=== PATIENT | male | born 1945 | race Hispanic/Latino ===

== ENCOUNTER 2018-08-14 05:52 | Observation (INO) | payer MEDICARE, OTHER ==
[~2018-08-14] VITALS: Ht 180.3 cm; Wt 85.0 kg
[~2018-08-14 05:52] MED LIST: ALBU6.7H IH; BUDE10.2 IH; CHOL100018 PO; GLYB5TAB8 PO; LOSA50TA2 PO; METF-444 PO; MONT10TA24 PO; TAMS-1 PO; TIOT4MIS5 IH
[2018-08-14] MEDS ORDERED: ASPIRIN 325 MG TABLET ONE (06:08)
[2018-08-14 06:16] LABS: BASOPHILS % (AUTO) 0.8 % (0.0-5.0); EOSINOPHILS % (AUTO) 3.8 % (0.0-8.0); HEMATOCRIT 36.4 % (42-54); LYMPHOCYTES % (AUTO) 33.2 % (21.0-51.0); MEAN CORPUSCULAR HEMOGLOBIN 32.1 pg (27.0-33.0); MEAN CORPUSCULAR HGB CONC 34.5 g/dL (32.0-36.0); MONOCYTES % (AUTO) 7.7 % (3.0-13.0); NEUTROPHILS % (AUTO) 54.5 % (40.0-77.0); PLATELET COUNT (AUTO) 173 K/uL (130-400); RED BLOOD CELL COUNT(AUTO) 3.91 MIL/uL (4.50-6.20); RED CELL DISTRIBUTION WIDTH 13.3 % (11.0-15.5); WHITE BLOOD COUNT (AUTO) 6.2 K/uL (4.8-10.8)
[2018-08-14 06:24] LABS: POTASSIUM 4.8 mmol/L (3.5-5.1)
[2018-08-14 06:35] LABS: ALBUMIN 3.8 g/dL (3.5-5.0); BILIRUBIN,TOTAL 0.8 mg/dL (0.2-1.0); TOTAL PROTEIN, SERUM 7.4 g/dL (6.0-8.3)
[2018-08-14 06:58] LABS: INR 1.02 (0.85-1.15); PARTIAL THROMBOPLASTIN TIME 27.3 SEC (26.3-35.5); PROTHROMBIN TIME 10.7 SEC (9.6-11.6)
[2018-08-14 10:34] LABS: CHOLESTEROL 158 mg/dL (<200); HDL CHOLESTEROL 121 mg/dL (29-71); LDL DIRECT 82 mg/dL (0-99); TRIGLYCERIDES 170 mg/dL (30-200)
[2018-08-14] MEDS ORDERED: METOPROLOL TARTRATE 25 MG TAB ONE (10:35)
[2018-08-14 10:38] LABS: HEMOGLOBIN A1C 7.8 % (4.0-6.0)
[2018-08-14] MEDS ORDERED: NITROGLYCERIN 0.4 MG SL TAB SL PRN (10:45)
[2018-08-14] MEDS ORDERED: IPRATROPIUM/ALBUTEROL SULFATE 3 ML SOLUTION IH ONE (10:57)
[2018-08-14] MEDS: IPRATROPIUM/ALBUTEROL SULFATE 3 ML SOLUTION IH SCH ×3 (11:02→23:13)
[2018-08-14] MEDS ORDERED: INSULIN HUMULIN R 100 UNIT/ML 3ML SQ SCH (11:30)
[2018-08-14 12:00] VITALS: BP 134/65
[2018-08-14 13:08] LABS: CREATINE KINASE, TOTAL 154 U/L (21-232); MYOGLOBIN 75 ng/mL (10-92); TROPONIN I < 0.04 ng/mL (0.00-0.06)
[2018-08-14] MEDS ORDERED: ASPI-555 PO (13:14)
[2018-08-14] MEDS ORDERED: OMEG-148 PO (13:14)
[2018-08-14] MEDS ORDERED: SUB PER P&T FOR ASTHMA OR COPD RECOMMENDATION IH PRN (13:15)
[2018-08-14] MEDS ORDERED: ALBUTEROL SULFATE 0.083% 2.5 MG/3 ML INH IH PRN (13:45)
[2018-08-14 15:34] VITALS: BP 128/70
[2018-08-14] MEDS: METFORMIN HCL 500 MG TABLET PO SCH (18:15)
[2018-08-14 18:27] LABS: CREATINE KINASE, TOTAL 125 U/L (21-232); MYOGLOBIN 62 ng/mL (10-92); TROPONIN I < 0.04 ng/mL (0.00-0.06)
[2018-08-14 20:01] VITALS: BP 129/62
[2018-08-14] MEDS: INSULIN HUMULIN R 100 UNIT/ML 3ML SQ SCH (20:55)
[2018-08-14] MEDS: METOPROLOL TARTRATE 25 MG TAB PO SCH (21:07)
[2018-08-14 23:45] VITALS: BP 119/65
[2018-08-15 00:38] LABS: CREATINE KINASE, TOTAL 110 U/L (21-232); MYOGLOBIN 72 ng/mL (10-92); TROPONIN I < 0.04 ng/mL (0.00-0.06)
[2018-08-15 03:55] VITALS: BP 115/64
--- NOTE | 2018-08-15 06:04 | NUR ---
PATIENT UPDATE ADMITTED FROM THE PREV SHIFT FOR CHEST PAIN. NO COMPLAINTS OF PAIN OVERNIGHT, NO SHORTNESS OF BREATH. PT RECEIVED WITH O2 ON AT 2L PER NASAL CANNULA, WEANED OFF BY RT. O2 SAT 94-96% ON ROOM AIR. PENDING CONSULT WITH AUTOMOTIVE DIAGNOSTIC TECHNICIAN, NO VISIT FROM DR. POWERS LAST NIGHT. VITAL SIGNS STABLE, REFUSED THE INSULIN S/S COVERAGE AT HS, BLOOD SUGAR THIS AM AT 82. RUNNING NSR IN THE TELE MONITOR, NO ECTOPIES NOTED.
[2018-08-15] MEDS: IPRATROPIUM/ALBUTEROL SULFATE 3 ML SOLUTION IH SCH ×2 (06:34→11:57)
[2018-08-15] MEDS: INSULIN HUMULIN R 100 UNIT/ML 3ML SQ SCH ×2 (07:30→11:30)
[2018-08-15] MEDS ORDERED: ASPIRIN 325 MG TABLET PO SCH (09:00)
[2018-08-15] MEDS ORDERED: **HM** VIT D3 1000 UNITS PO SCH (09:00)
[2018-08-15] MEDS ORDERED: LOSARTAN 50 MG TABLET PO SCH (09:00)
[2018-08-15] MEDS ORDERED: FISH OIL 1000 MG/CAP PO SCH (09:00)
[2018-08-15] MEDS ORDERED: GLYBURIDE 5 MG TABLET PO SCH (09:00)
[2018-08-15] MEDS ORDERED: ASPIRIN 81MG TAB.CHEW PO SCH (09:00)
[2018-08-15] MEDS ORDERED: ENOXAPARIN SODIUM 30 MG/0.3 ML SQ SCH (09:00)
[2018-08-15] MEDS ORDERED: PANTOPRAZOLE SODIUM 40 MG TABLET.DR PO SCH (09:00)
[2018-08-15] MEDS ORDERED: MONTELUKAST SODIUM 10 MG TAB PO SCH (09:00)
[2018-08-15 09:20] VITALS: BP 122/61
[2018-08-15] MEDS: METOPROLOL TARTRATE 25 MG TAB PO SCH (11:26)
[2018-08-15] MEDS: METFORMIN HCL 500 MG TABLET PO SCH (11:28)
[2018-08-15 13:23] VITALS: BP 134/72
[2018-08-15] MEDS ORDERED: PANT40TA PO (13:39)
== END 2018-08-15 14:30 | disposition home or self-care (01) ==
LOC: EDH 05:52 → EDHIP 10:13 → 3DH 11:50
PROVIDERS: ADMIT Internal Medicine; ATTEND Internal Medicine
DX: R07.89 Other chest pain (principal); I50.33 Acute on chronic diastolic (congestive) heart failure; E11.9 Type 2 diabetes mellitus without complications; E78.5 Hyperlipidemia, unspecified; E89.0 Postprocedural hypothyroidism; I45.10 Unspecified right bundle-branch block; J44.9 Chronic obstructive pulmonary disease, unspecified; K21.9 Gastro-esophageal reflux disease without esophagitis; Z82.49 Family history of ischemic heart disease and other diseases of the circulatory system; Z82.5 Family history of asthma and other chronic lower respiratory diseases; Z83.3 Family history of diabetes mellitus; Z87.730 Personal history of (corrected) cleft lip and palate; Z90.49 Acquired absence of other specified parts of digestive tract; Z88.8 Allergy status to other drugs, medicaments and biological substances
CPT/HCPCS: 36415 ×2; 71045; 80053; 80061; 82550 ×4; 82948 ×6; 83036; 83874 ×4; 83880; 84484 ×4; 85025; 85610; 85730; 93005 ×3; 93306; 94640 ×5; 94664; 96372; 99284; G0378 ×28; J1650

== ENCOUNTER 2018-12-16 21:03 | Inpatient (IN) | payer MEDICARE, OTHER ==
[~2018-12-16] VITALS: Ht 177.8 cm; Wt 81.2 kg
[~2018-12-16 21:03] MED LIST changes: +ASPI-555 PO; +OMEG-148 PO; +PANT40TA PO; -TAMS-1 PO; -TIOT4MIS5 IH
[2018-12-16] MEDS ORDERED: ONDANSETRON HCL 4 MG/2 ML VIAL ONE (21:28)
[2018-12-16] MEDS ORDERED: ACETAMINOPHEN 325 MG TAB ONE (21:29)
[2018-12-16] MEDS ORDERED: MORPHINE SULFATE 4 MG/1ML SYG ONE (21:29)
[2018-12-16] MEDS ORDERED: SODIUM CHLORIDE 0.9% 1000ML 1,000 ML IV ONE (21:29)
[2018-12-16 21:46] LABS: APPEARANCE,URINE Clear (CLEAR); BILIRUBIN,URINE Negative (NEGATIVE); COLOR,URINE Yellow (YELLOW); GLUCOSE, URINE (UA) Negative (NEGATIVE); KETONES,URINE Negative (NEGATIVE); LEUKOCYTE ESTERASE ,URINE Trace (NEGATIVE); NITRATE,URINE Negative (NEGATIVE); OCCULT BLOOD,URINE Negative (NEGATIVE); PROTEIN,URINE Negative (NEGATIVE); UROBILINOGEN,URINE 0.2 mg/dL (0.2-1.0)
[2018-12-16 21:47] LABS: BASOPHILS % (AUTO) 0.5 % (0.0-5.0); EOSINOPHILS % (AUTO) 1.7 % (0.0-8.0); HEMATOCRIT 39.4 % (42-54); LYMPHOCYTES % (AUTO) 9.5 % (21.0-51.0); MEAN CORPUSCULAR HEMOGLOBIN 32.1 pg (27.0-33.0); MEAN CORPUSCULAR HGB CONC 34.9 g/dL (32.0-36.0); MEAN CORPUSCULAR VOLUME 91.9 fL (79-99); MONOCYTES % (AUTO) 7.9 % (3.0-13.0); NEUTROPHILS % (AUTO) 80.4 % (40.0-77.0); PLATELET COUNT (AUTO) 159 K/uL (130-400); RED BLOOD CELL COUNT(AUTO) 4.28 MIL/uL (4.50-6.20); RED CELL DISTRIBUTION WIDTH 12.8 % (11.0-15.5); WHITE BLOOD COUNT (AUTO) 10.4 K/uL (4.8-10.8)
[2018-12-16 21:50] LABS: CREATININE 1.7 mg/dL (0.5-1.5); POTASSIUM 4.1 mmol/L (3.5-5.1)
[2018-12-16 21:53] LABS: BACTERIA,URINE Few /HPF (None Seen); RBC,URINE 0-1 /HPF (0-1)
[2018-12-16 21:54] LABS: ALBUMIN 3.5 g/dL (3.5-5.0); BILIRUBIN,TOTAL 0.9 mg/dL (0.2-1.0); MUCUS,URINE None Seen LPF (None Seen); SQUAMOUS EPITHELIAL CELL,UR 0-2 /HPF (0-2); TOTAL PROTEIN, SERUM 7.7 g/dL (6.0-8.3)
[2018-12-16] MEDS ORDERED: CEFTRIAXONE SODIUM 1 GM ONE (22:34)
[2018-12-16] MEDS ORDERED: TAMSULOSIN HCL 0.4 MG CAP.ER.24H ONE (23:48)
[2018-12-17] MEDS ORDERED: ACETAMINOPHEN 325 MG TAB ONE (03:42)
[2018-12-17] MEDS ORDERED: MORPHINE SULFATE 4 MG/1ML SYG ONE (03:42)
[2018-12-17] MEDS ORDERED: MORPHINE SULFATE 4 MG/1ML SYG IV PRN (04:30)
[2018-12-17] MEDS ORDERED: ACETAMINOPHEN EXTRA STRENGTH 500 MG TABLET PO PRN (04:30)
[2018-12-17] MEDS ORDERED: MORPHINE SULFATE 2 MG/ML 1ML SYG IV PRN (04:30)
[2018-12-17] MEDS: CEFTRIAXONE SODIUM 2 GM VIAL IVP SCH (04:30)
[2018-12-17 08:40] VITALS: BP 104/40
[2018-12-17] MEDS ORDERED: FAMOTIDINE/PF 20 MG/2 ML VIAL IV SCH (09:00)
[2018-12-17] MEDS: ENOXAPARIN SODIUM 30 MG/0.3 ML SQ SCH ×2 (09:00→12:52)
[2018-12-17] MEDS ORDERED: PRED20TA3 PO (10:02)
[2018-12-17] MEDS ORDERED: KRIL1CAP18 PO (10:02)
--- NOTE | 2018-12-17 10:20 | NUR ---
PER DR. HYMAN OFFICE ([facility]) BOTH HER AND DR. MACHADO ARE OUT OF THE OFFICE UNTIL FRIDAY DR. MONTES DE OCA IS COVERING FOR THEM
--- NOTE | 2018-12-17 10:35 | NUR ---
DR. MONTES DE OCA'S OFFICE PAGED YASMIN AWARE OF CT ABD / PELVIS
[2018-12-17 11:00] VITALS: BP 110/58
[2018-12-17 16:00] VITALS: BP 107/44
[2018-12-17 20:19] VITALS: BP 126/64
[2018-12-17] MEDS: DOCUSATE SODIUM 100 MG CAP PO SCH (20:34)
[2018-12-17] MEDS: BISACODYL 5 MG TABLET.DR PO SCH (20:34)
[2018-12-17] MEDS: SODIUM CHLORIDE 0.9% 1000ML 1,000 ML IV SCH (20:35)
--- NOTE | 2018-12-17 21:30 | NUR ---
MD ROUNDING. ROUNDED IN PT ROOM. ASSESSED PT CHART AND PT. UPDATED PT AND FAMILY MEMBER AT BEDSIDE OF PLAN OF CARE, PT AND FAMILY WERE ABLE TO ASK QUESTIONS/VOICE CONCERNS AND RECEIVE ANSWERS FROM MD. NEW ORDERS PLACED (REFER TO EMR), SPOKE TO REFUSE COLLECTOR TO SCHEDULE PROCEDURE FOR TOMORROW 12/18/18 AT 12:00.
[2018-12-17 23:48] VITALS: BP 111/59
[2018-12-18] VITALS (15 sets, daily range): BP systolic 97–136; BP diastolic 55–72
[2018-12-18] MEDS: SODIUM CHLORIDE 0.9% 1000ML 1,000 ML IV SCH ×3 (05:10→18:35)
[2018-12-18] MEDS: CEFTRIAXONE SODIUM 2 GM VIAL IVP SCH (05:10)
[2018-12-18 06:24] LABS: BASOPHILS % (AUTO) 0.6 % (0.0-5.0); HEMATOCRIT 38.1 % (42-54); LYMPHOCYTES % (AUTO) 17.4 % (21.0-51.0); MEAN CORPUSCULAR HEMOGLOBIN 31.7 pg (27.0-33.0); MEAN CORPUSCULAR VOLUME 93.2 fL (79-99); MONOCYTES % (AUTO) 9.2 % (3.0-13.0); NEUTROPHILS % (AUTO) 70.8 % (40.0-77.0); PLATELET COUNT (AUTO) 175 K/uL (130-400); RED BLOOD CELL COUNT(AUTO) 4.09 MIL/uL (4.50-6.20); RED CELL DISTRIBUTION WIDTH 12.6 % (11.0-15.5); WHITE BLOOD COUNT (AUTO) 9.7 K/uL (4.8-10.8)
[2018-12-18 06:35] LABS: ALBUMIN 3.1 g/dL (3.5-5.0); BILIRUBIN,TOTAL 1.5 mg/dL (0.2-1.0); CREATININE 1.4 mg/dL (0.5-1.5); TOTAL PROTEIN, SERUM 7.3 g/dL (6.0-8.3)
[2018-12-18] MEDS: BISACODYL 5 MG TABLET.DR PO SCH ×2 (07:59→21:44)
[2018-12-18] MEDS: DOCUSATE SODIUM 100 MG CAP PO SCH ×2 (07:59→21:44)
[2018-12-18] MEDS: TAMSULOSIN HCL 0.4 MG CAP.ER.24H PO SCH (08:00)
[2018-12-18] MEDS: ENOXAPARIN SODIUM 30 MG/0.3 ML SQ SCH (08:00)
--- NOTE | 2018-12-18 08:00 | NUR ---
SCHEDULED TRUONG HELD THIS AM DUE TO SCHEDULED URETEROSCOPY WITH STENT PLACEMENT FOR TODAY.
[2018-12-18] MEDS: FAMOTIDINE/PF 20 MG/2 ML VIAL IV SCH (08:04)
--- NOTE | 2018-12-18 09:05 | NUR ---
PT PASSED LARGE STONE IN URINE. REPORTED TO NETTA @ DR MONTES DE OCA'S OFFICE. Addendum: 12/18/18 at 1947 by AR PINON RN RN AT 929, REC'D ORDER FROM DR MONTES DE OCA'S OFFICE TO DO IVP WITH TOMOGRAM, MAY POSSIBLY NOT NEED URETEROSCOPY NOW THAT STONE HAS PASSED..
[2018-12-18] MEDS ORDERED: IOHEXOL-350 75 ML VIAL IV ONE (10:30)
--- NOTE | 2018-12-18 10:30 | NUR ---
REC'D ORDER TO CONSULT INFECTIOUS DISEASE DUE TO BACTEREMIA. DR MELENDREZ IS OUT OF TOWN, NOTIFIED ORDERING PROVIDER (DAVID YARBROUGH) WHO STATED OKAY, JUST TO REPEAT BCX.
[2018-12-18] MEDS ORDERED: IOHEXOL-350 50ML VIAL IV ONE ×2 (10:54→17:55)
--- NOTE | 2018-12-18 16:30 | NUR ---
CM NOTE CHART REVIEWED, WILL RETURN FOR IA
[2018-12-18] MEDS ORDERED: PROPOFOL 10 MG/ML 20ML VIAL IV ONE (17:53)
[2018-12-18] MEDS ORDERED: LIDOCAINE PF 2% 5ML ABBOJECT ONE (17:53)
[2018-12-18] MEDS ORDERED: FENTANYL CITRATE PF 50 MCG/1 ML 2ML VIAL ONE (17:53)
[2018-12-18] MEDS ORDERED: EPHEDRINE SULFATE 50 MG/ML AMPULE ONE (18:12)
--- NOTE | 2018-12-18 18:26 | NUR ---
INIITIAL ATTEMPTED PT IN RESTROOM WILL RETURN Addendum: 12/18/18 at 1826 by KWAKU MARK RN CM Amended: Links added.
[2018-12-18] MEDS ORDERED: ONDANSETRON HCL 4 MG/2 ML VIAL ONE (18:41)
--- NOTE | 2018-12-18 19:40 | NUR ---
PM Assessment Received pt from Recovery room s/p ureter stent placement, with FC draining light franki colored urine, NS at 150cc/hr infusing well, routine assessment done, pt who is fully awake at this time with family at the bedside made aware of routine post of care, VS will be monitored q 15 minutes x 4, Q 30 minuted x 4, Q 1 hours x 4 then back to routine Q 4 hours. Pt also made aware that he is for d/c tomorrow & that I will d/c his FC as ordered in AM at around 0500 then he will be due to void within 6/8 hours. Pt also encourage to increased his fluid intake to clear up his urine, verbalizes understanding.
[2018-12-19 04:00] VITALS: BP 116/53
[2018-12-19 04:39] LABS: BASOPHILS % (AUTO) 0.3 % (0.0-5.0); EOSINOPHILS % (AUTO) 2.1 % (0.0-8.0); HEMATOCRIT 32.9 % (42-54); LYMPHOCYTES % (AUTO) 14.6 % (21.0-51.0); MEAN CORPUSCULAR HEMOGLOBIN 31.7 pg (27.0-33.0); MEAN CORPUSCULAR HGB CONC 34.7 g/dL (32.0-36.0); MEAN CORPUSCULAR VOLUME 91.4 fL (79-99); MONOCYTES % (AUTO) 8.2 % (3.0-13.0); NEUTROPHILS % (AUTO) 74.8 % (40.0-77.0); PLATELET COUNT (AUTO) 155 K/uL (130-400); RED CELL DISTRIBUTION WIDTH 12.7 % (11.0-15.5); WHITE BLOOD COUNT (AUTO) 7.6 K/uL (4.8-10.8)
[2018-12-19 04:47] LABS: CREATININE 1.2 mg/dL (0.5-1.5)
[2018-12-19] MEDS: CEFTRIAXONE SODIUM 2 GM VIAL IVP SCH (05:15)
--- NOTE | 2018-12-19 05:30 | NUR ---
Re: Rock Catheter Rock Catheter discontinuation explained to pt, initially pt is hesitant as stated in the past when he had a stent place & FC was discontinued, he was not able to void right away & ended up to have to FC re-inserted. I did explain & advise pt to think positive as we won't know is such thing would happen again unless we take out this FC, agreed. DTV 1030 to 1330,pt advise to drink plenty of water & to ambulate around the unit.
[2018-12-19] MEDS: SODIUM CHLORIDE 0.9% 1000ML 1,000 ML IV SCH ×3 (06:14→11:46)
[2018-12-19 07:00] VITALS: BP 120/65
[2018-12-19] MEDS: BISACODYL 5 MG TABLET.DR PO SCH ×2 (07:52→20:25)
[2018-12-19] MEDS: TAMSULOSIN HCL 0.4 MG CAP.ER.24H PO SCH (07:52)
[2018-12-19] MEDS: FAMOTIDINE/PF 20 MG/2 ML VIAL IV SCH (07:52)
[2018-12-19] MEDS: DOCUSATE SODIUM 100 MG CAP PO SCH ×2 (07:52→20:24)
[2018-12-19] MEDS: ENOXAPARIN SODIUM 30 MG/0.3 ML SQ SCH (07:54)
--- NOTE | 2018-12-19 08:14 | NUR ---
Pt voided 200 cc light franki urine into urinal. No hematuria, no sediment or stones. Denies dysuria. Refused am lovenox, states would rather ambulate in hallway. Has scd's in place while in bed.
[2018-12-19 11:00] VITALS: BP 105/56
[2018-12-19] MEDS: ZOSYN 3.375GM+NS 50ML 50 ML IV SCH ×2 (11:39→20:24)
--- NOTE | 2018-12-19 16:04 | NUR ---
cm note met with patient and his mother, pt states resides with spouse alina. pt independent with ambulation, and adls. 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 no services pt drives. dc plan is back to home. no dc needs.
[2018-12-19 16:07] VITALS: BP 102/57
[2018-12-19 19:31] VITALS: BP 125/59
[2018-12-19 23:26] VITALS: BP 114/54
[2018-12-20] MEDS: ZOSYN 3.375GM+NS 50ML 50 ML IV SCH ×3 (03:37→18:31)
[2018-12-20] MEDS: CEFTRIAXONE SODIUM 2 GM VIAL IVP SCH (03:37)
[2018-12-20 03:38] VITALS: BP 95/42
[2018-12-20] MEDS: SODIUM CHLORIDE 0.9% 1000ML 1,000 ML IV SCH (03:38)
[2018-12-20 05:02] LABS: HEMATOCRIT 31.6 % (42-54); MEAN CORPUSCULAR HEMOGLOBIN 32.1 pg (27.0-33.0); MEAN CORPUSCULAR HGB CONC 34.8 g/dL (32.0-36.0); MEAN CORPUSCULAR VOLUME 92.5 fL (79-99); PLATELET COUNT (AUTO) 158 K/uL (130-400); RED BLOOD CELL COUNT(AUTO) 3.41 MIL/uL (4.50-6.20); RED CELL DISTRIBUTION WIDTH 12.8 % (11.0-15.5); WHITE BLOOD COUNT (AUTO) 6.4 K/uL (4.8-10.8)
[2018-12-20 05:20] LABS: CREATININE 1.3 mg/dL (0.5-1.5); POTASSIUM 3.8 mmol/L (3.5-5.1)
[2018-12-20 07:23] VITALS: BP 103/52
[2018-12-20] MEDS ORDERED: FAMOTIDINE 20MG TAB 20 MG TAB ONE (08:47)
[2018-12-20] MEDS: TAMSULOSIN HCL 0.4 MG CAP.ER.24H PO SCH (08:49)
[2018-12-20] MEDS: DOCUSATE SODIUM 100 MG CAP PO SCH ×2 (08:54→20:24)
[2018-12-20] MEDS: ENOXAPARIN SODIUM 30 MG/0.3 ML SQ SCH (08:54)
[2018-12-20] MEDS: BISACODYL 5 MG TABLET.DR PO SCH ×2 (08:54→20:24)
[2018-12-20] MEDS: FAMOTIDINE/PF 20 MG/2 ML VIAL IV SCH (09:00)
[2018-12-20 11:08] VITALS: BP 114/61
[2018-12-20] MEDS: LEVOFLOXACIN 500 MG/D5W 100 ML 100 ML IV SCH (11:13)
--- NOTE | 2018-12-20 15:00 | NUR ---
Pt transferred via wheelchair to room 324, in stable condition. Pt accompanied by family members. Report given to 3rd floor nurse Js.
[2018-12-20 16:00] VITALS: BP 129/65
[2018-12-20 19:47] VITALS: BP 128/60
--- NOTE | 2018-12-20 20:25 | NUR ---
MEDS SHIFT ASSESSMENT DONE, PLEASE REFER TO CHART. PT REFUSED PO LAXATIVE NAD STOOL SOFTENER PT CLAIMS THAT HE HAD BEEN HAVING BM AND HAD ALREADY 2 TODAY. KEPT RESTED AND COMFORTABLE. CALL LIGHT WITHIN REACH. WILL MONITOR PT. Addendum: 12/20/18 at 2251 by RACHEL SMALLWOOD RN RN Amended: Links added.
[2018-12-20 23:38] VITALS: BP 107/56
[2018-12-21] MEDS: SODIUM CHLORIDE 0.9% 1000ML 1,000 ML IV SCH (01:14)
--- NOTE | 2018-12-21 02:00 | NUR ---
ROUNDS PT FAIRLY ASLEEP WITH RESPIRATIONS EVEN AND UNLABORED. NO NOTED DISTRESS. KEPT UNDISTURBED FOR NOW. WILL MONITOR PT. CALL LIGHT WITHIN REACH.
[2018-12-21] MEDS: ZOSYN 3.375GM+NS 50ML 50 ML IV SCH ×2 (02:49→14:03)
[2018-12-21 03:32] VITALS: BP 107/50
[2018-12-21 05:08] LABS: HEMATOCRIT 31.1 % (42-54); MEAN CORPUSCULAR HEMOGLOBIN 31.8 pg (27.0-33.0); MEAN CORPUSCULAR HGB CONC 34.5 g/dL (32.0-36.0); PLATELET COUNT (AUTO) 189 K/uL (130-400); RED BLOOD CELL COUNT(AUTO) 3.38 MIL/uL (4.50-6.20); RED CELL DISTRIBUTION WIDTH 12.8 % (11.0-15.5)
[2018-12-21 05:21] LABS: CREATININE 1.3 mg/dL (0.5-1.5); POTASSIUM 3.9 mmol/L (3.5-5.1)
--- NOTE | 2018-12-21 05:30 | NUR ---
ROUNDS PT ALREADY AWAKE AND DENIES ANY DISCOMFORT NOR CONCERNS AT THIS TIME. NO DISTRESS NOTED. KEPT RESTED AND COMFORTABLE. CALL LIGHT WITHIN REACH.FOR MORE CARE.
[2018-12-21 08:00] VITALS: BP 131/63
[2018-12-21] MEDS: DOCUSATE SODIUM 100 MG CAP PO SCH ×2 (09:00→20:43)
[2018-12-21] MEDS: BISACODYL 5 MG TABLET.DR PO SCH ×2 (09:00→20:44)
[2018-12-21] MEDS: ENOXAPARIN SODIUM 30 MG/0.3 ML SQ SCH (09:00)
[2018-12-21] MEDS: TAMSULOSIN HCL 0.4 MG CAP.ER.24H PO SCH (09:14)
[2018-12-21] MEDS: LEVOFLOXACIN 500 MG/D5W 100 ML 100 ML IV SCH (09:15)
[2018-12-21] MEDS: FAMOTIDINE/PF 20 MG/2 ML VIAL IV SCH (09:15)
--- NOTE | 2018-12-21 09:24 | NUR ---
PT REFUSING COLACE AND DULCOLAX STATES HE HAS BEEN HAVING BOWEL MOVEMENTS WNL
--- NOTE | 2018-12-21 09:40 | NUR ---
PT REFUSED LOVENOX INJECTION PT EXPLAINED RISKS AND BENEFITS OF MEDICATION. PER PT AND HE HAS BEEN WALKING TO INCREASE CIRCULATION AND DOES NOT NEED MED. PT AGREED TO SIGN REFUSAL FORM AND WAS PLACED IN CHART
[2018-12-21 12:01] VITALS: BP 127/66
[2018-12-21 16:00] VITALS: BP 125/72
[2018-12-21] MEDS ORDERED: LEVO500T89 PO (16:55)
[2018-12-21 20:15] VITALS: BP 117/54
[2018-12-21 23:46] VITALS: BP 131/67
[2018-12-22 04:06] VITALS: BP 129/65
[2018-12-22 05:22] LABS: BASOPHILS % (AUTO) 0.7 % (0.0-5.0); EOSINOPHILS % (AUTO) 3.7 % (0.0-8.0); HEMATOCRIT 31.9 % (42-54); LYMPHOCYTES % (AUTO) 27.4 % (21.0-51.0); MEAN CORPUSCULAR HEMOGLOBIN 31.4 pg (27.0-33.0); MEAN CORPUSCULAR HGB CONC 34.1 g/dL (32.0-36.0); MEAN CORPUSCULAR VOLUME 92.1 fL (79-99); MONOCYTES % (AUTO) 8.3 % (3.0-13.0); NEUTROPHILS % (AUTO) 59.9 % (40.0-77.0); PLATELET COUNT (AUTO) 181 K/uL (130-400); RED BLOOD CELL COUNT(AUTO) 3.47 MIL/uL (4.50-6.20); RED CELL DISTRIBUTION WIDTH 12.6 % (11.0-15.5); WHITE BLOOD COUNT (AUTO) 5.9 K/uL (4.8-10.8)
[2018-12-22 05:28] LABS: CREATININE 1.2 mg/dL (0.5-1.5); POTASSIUM 3.6 mmol/L (3.5-5.1)
[2018-12-22 07:30] VITALS: BP 140/64
[2018-12-22] MEDS: DOCUSATE SODIUM 100 MG CAP PO SCH (08:14)
[2018-12-22] MEDS: BISACODYL 5 MG TABLET.DR PO SCH (08:14)
[2018-12-22] MEDS: FAMOTIDINE/PF 20 MG/2 ML VIAL IV SCH (08:14)
[2018-12-22] MEDS: ENOXAPARIN SODIUM 30 MG/0.3 ML SQ SCH (08:15)
[2018-12-22] MEDS: TAMSULOSIN HCL 0.4 MG CAP.ER.24H PO SCH (08:20)
[2018-12-22] MEDS: LEVOFLOXACIN 500 MG/D5W 100 ML 100 ML IV SCH (08:20)
--- NOTE | 2018-12-22 11:27 | NUR ---
PT DISCHARGED AT THIS TIME PER ORDER TO DC PER Isaiah BOOKER NP. PT IN NO DISTRESS, AAOX3 WITHIN NORMAL LIMITS. DISCHARGE SUMMARY EXPLAINED. DISCHARGE INSTRUCTIONS AND MEDICATION PRESCRIPTION EXPLAINED TO PT AND SPOUSE. PIV TO R FOREARM DCD WITH NO DISCOMFORT. NO REDNESS NOTED. MINIMAL BLEEDING. PT TOLERATED WELL. PT AND SPOUSE VERBALIZED UNDERSTANDING OF DC INSTRUCTIONS AND GIVEN ORDER TO FOLLOW UP WITH DR NELSON 12/31/18 AT 0915
== END 2018-12-22 13:00 | disposition home or self-care (01) | DRG 661 ==
LOC: EDH 21:03 → EDHIP 12-17 04:18 → 4BH 12-17 07:48 → 3DH 12-20 15:02
PROVIDERS: ADMIT Internal Medicine; ATTEND Internal Medicine
PROC: 0TCB8ZZ Extirpation of Matter from Bladder, Via Natural or Artificial Opening Endoscopic (ICD-10-PCS; 2018-12-18)
PROC: BT1F1ZZ Fluoroscopy of Left Kidney, Ureter and Bladder using Low Osmolar Contrast (ICD-10-PCS; 2018-12-18)
PROC: 0T778DZ Dilation of Left Ureter with Intraluminal Device, Via Natural or Artificial Opening Endoscopic (ICD-10-PCS; principal; 2018-12-18 18:23)
DX: N13.6 Pyonephrosis (principal); K57.30 Diverticulosis of large intestine without perforation or abscess without bleeding; K76.0 Fatty (change of) liver, not elsewhere classified; K59.00 Constipation, unspecified; K76.89 Other specified diseases of liver; N17.0 Acute kidney failure with tubular necrosis; E11.9 Type 2 diabetes mellitus without complications; I25.10 Atherosclerotic heart disease of native coronary artery without angina pectoris; E78.5 Hyperlipidemia, unspecified; I34.0 Nonrheumatic mitral (valve) insufficiency; J44.9 Chronic obstructive pulmonary disease, unspecified; I10 Essential (primary) hypertension; Z90.89 Acquired absence of other organs; Z82.49 Family history of ischemic heart disease and other diseases of the circulatory system; Z82.5 Family history of asthma and other chronic lower respiratory diseases; Z87.730 Personal history of (corrected) cleft lip and palate; B95.7 Other staphylococcus as the cause of diseases classified elsewhere
CPT/HCPCS: 36415; 74176; 74400; 74420; 80048; 80053; 81001; 82948; 83605; 83690; 85025; 85027; 87040; 87071; 87077; 87088; 87186; 87205; 93306; A4354; C1758; C1769; C2617; G0378; J0696; J1650; J1956; J2001; J2270; J2405; J2543; J2704; J3010; J3490; J7030; J7120; Q9967

== ENCOUNTER 2019-01-15 07:54 | Day surgery (SDC) | payer MEDICARE, OTHER ==
[2019-01-13 14:11] VITALS: BP 129/59
--- NOTE | 2019-01-13 14:15 | NUR ---
ekg abnormal ekg reported to dr. duenas. no further orders given, ok to proceed with sx
[2019-01-13 14:29] LABS: CREATININE 1.2 mg/dL (0.5-1.5); POTASSIUM 4.2 mmol/L (3.5-5.1)
[2019-01-13 14:37] LABS: BASOPHILS % (AUTO) 0.7 % (0.0-5.0); EOSINOPHILS % (AUTO) 3.4 % (0.0-8.0); HEMATOCRIT 38.8 % (42-54); LYMPHOCYTES % (AUTO) 25.5 % (21.0-51.0); MEAN CORPUSCULAR HEMOGLOBIN 31.6 pg (27.0-33.0); MEAN CORPUSCULAR HGB CONC 34.2 g/dL (32.0-36.0); MEAN CORPUSCULAR VOLUME 92.5 fL (79-99); MONOCYTES % (AUTO) 7.6 % (3.0-13.0); NEUTROPHILS % (AUTO) 62.8 % (40.0-77.0); PLATELET COUNT (AUTO) 170 K/uL (130-400); RED CELL DISTRIBUTION WIDTH 13.3 % (11.0-15.5); WHITE BLOOD COUNT (AUTO) 7.4 K/uL (4.8-10.8)
[2019-01-15] VITALS (16 sets, daily range): BP systolic 111–129; BP diastolic 57–71
[~2019-01-15] VITALS: Ht 180.3 cm; Wt 80.4 kg
[~2019-01-15 07:54] MED LIST changes: -ALBU6.7H IH; +ALBU6.7H9 IH; -ASPI-555 PO; -GLYB5TAB8 PO; +KRILL OIL PO; -MONT10TA24 PO; -OMEG-148 PO; -PANT40TA PO
[2019-01-15] MEDS ORDERED: IOHEXOL-350 50ML VIAL IV ONE (08:01)
[2019-01-15] MEDS ORDERED: SODIUM CHLORIDE 0.9% 1000ML 1,000 ML IV ONE (08:06)
[2019-01-15] MEDS ORDERED: CEFTRIAXONE SODIUM 1 GM ONE (08:06)
[2019-01-15] MEDS ORDERED: moringa PO (08:34)
[2019-01-15] MEDS ORDERED: POTA15TA2 PO (08:34)
[2019-01-15] MEDS ORDERED: LIDOCAINE PF 2% 5ML ABBOJECT ONE (11:41)
[2019-01-15] MEDS ORDERED: ROCURONIUM 10MG/1ML SYR 10 MG/ML ML ONE (11:42)
[2019-01-15] MEDS ORDERED: PROPOFOL 10 MG/ML 20ML VIAL IV ONE (11:42)
[2019-01-15] MEDS ORDERED: CEFTRIAXONE SODIUM 1 GM IVP ONE (11:50)
[2019-01-15] MEDS ORDERED: GLYCOPYRROLATE 1 MG/5 ML SYRINGE ONE (12:09)
[2019-01-15] MEDS ORDERED: NEOSTIGMINE 5MG/5ML SYR IV ONE (12:30)
[2019-01-15] MEDS ORDERED: FENTANYL CITRATE PF 50 MCG/1 ML 2ML VIAL ONE (12:31)
[2019-01-15] MEDS ORDERED: PHENAZOPYRIDINE HCL 200 MG TABLET ONE (13:49)
[2019-01-15] MEDS ORDERED: PHENAZOPYRIDINE HCL 200 MG TABLET PO SCH (14:00)
== END 2019-01-15 14:31 | disposition home or self-care (01) ==
LOC: DAH 07:54
PROVIDERS: ATTEND Urology
DX: N13.2 Hydronephrosis with renal and ureteral calculous obstruction (principal); N13.1 Hydronephrosis with ureteral stricture, not elsewhere classified; J44.9 Chronic obstructive pulmonary disease, unspecified; E11.40 Type 2 diabetes mellitus with diabetic neuropathy, unspecified; E78.5 Hyperlipidemia, unspecified; Z88.8 Allergy status to other drugs, medicaments and biological substances; Z79.899 Other long term (current) drug therapy; Z79.84 Long term (current) use of oral hypoglycemic drugs; Z82.49 Family history of ischemic heart disease and other diseases of the circulatory system; Z82.5 Family history of asthma and other chronic lower respiratory diseases
CPT/HCPCS: 36415 ×2; 52332; 52352; 74420; 80048; 82360; 82948 ×2; 85025; 93005; A4215; A4221; A4222; A4223; A4344; A4358; A4663; A6204; A6260; C1758; C1769; C2617; J0696 ×2; J2001; J2704; J2710; J3010; J3490; J7030; Q9967

== ENCOUNTER 2019-01-19 00:48 | Emergency (ER) | payer MEDICARE, OTHER ==
[~2019-01-19 00:48] MED LIST changes: -KRILL OIL PO; +POTA15TA2 PO; +moringa PO
[2019-01-19] MEDS ORDERED: ONDANSETRON HCL 4 MG/2 ML VIAL ONE (01:15)
[2019-01-19] MEDS ORDERED: MORPHINE SULFATE 4 MG/1ML SYG ONE (01:15)
[2019-01-19] MEDS ORDERED: LIDOCAINE HCL 2% JELLY 5 ML ONE (01:29)
== END 2019-01-19 02:57 | disposition home or self-care (01) ==
LOC: EDH 00:48
DX: R33.9 Retention of urine, unspecified (principal); J44.9 Chronic obstructive pulmonary disease, unspecified; E11.9 Type 2 diabetes mellitus without complications; E78.5 Hyperlipidemia, unspecified; Z90.49 Acquired absence of other specified parts of digestive tract; Z88.8 Allergy status to other drugs, medicaments and biological substances
CPT/HCPCS: 99281; J2270; J2405

== ENCOUNTER 2019-09-01 09:45 | Inpatient (IN) | payer MEDICARE ==
[~2019-09-01] VITALS: Ht 180.3 cm; Wt 74.7 kg
[2019-09-01 10:34] LABS: BASOPHILS % (AUTO) 0.3 % (0.0-5.0); EOSINOPHILS % (AUTO) 1.1 % (0.0-8.0); HEMATOCRIT 37.3 % (42-54); LYMPHOCYTES % (AUTO) 14.5 % (21.0-51.0); MEAN CORPUSCULAR HEMOGLOBIN 30.8 pg (27.0-33.0); MEAN CORPUSCULAR HGB CONC 33.2 g/dL (32.0-36.0); MEAN CORPUSCULAR VOLUME 92.6 fL (79-99); MONOCYTES % (AUTO) 5.7 % (3.0-13.0); NEUTROPHILS % (AUTO) 77.9 % (40.0-77.0); PLATELET COUNT (AUTO) 175 K/uL (130-400); RED BLOOD CELL COUNT(AUTO) 4.03 MIL/uL (4.50-6.20); RED CELL DISTRIBUTION WIDTH 15.1 % (11.0-15.5); WHITE BLOOD COUNT (AUTO) 6.4 K/uL (4.8-10.8)
[2019-09-01 10:43] LABS: CARBON DIOXIDE 25 mmol/L (21-32); CHLORIDE 99 mmol/L (101-111); GLOMERULAR FILTR. RATE CALC 78 mL/min (>60); GLUCOSE,RANDOM 209 mg/dL (70-105); POTASSIUM 4.2 mmol/L (3.5-5.1); SODIUM SERUM 131 mmol/L (136-145); UREA NITROGEN, BLOOD 19 mg/dL (7-18)
[2019-09-01 10:48] LABS: INR 1.13 (0.85-1.15); PARTIAL THROMBOPLASTIN TIME 29.5 SEC (26.3-35.5); PROTHROMBIN TIME 12.1 SEC (9.6-11.6)
[2019-09-01 11:05] LABS: ALANINE AMINOTRANSFERASE 95 U/L (12-78); ALBUMIN 2.9 g/dL (3.5-5.0); ASPARTATE AMINOTRANSFERASE 137 U/L (10-37); BILIRUBIN,TOTAL 7.3 mg/dL (0.2-1.0); CREATINE KINASE, TOTAL 26 U/L (21-232); MYOGLOBIN 33 ng/mL (10-92); TOTAL PROTEIN, SERUM 7.9 g/dL (6.0-8.3); TROPONIN I < 0.04 ng/mL (0.00-0.06)
[2019-09-01 11:43] LABS: APPEARANCE,URINE CLEAR (CLEAR); BILIRUBIN,URINE LARGE (NEGATIVE); COLOR,URINE ORANGE (YELLOW); GLUCOSE, URINE (UA) NEGATIVE (NEGATIVE); KETONES,URINE NEGATIVE (NEGATIVE); LEUKOCYTE ESTERASE ,URINE NEGATIVE (NEGATIVE); NITRATE,URINE NEGATIVE (NEGATIVE); OCCULT BLOOD,URINE NEGATIVE (NEGATIVE); PH,URINE 5.5 (5.0-8.0); PROTEIN,URINE TRACE mg/dL (NEGATIVE)
[2019-09-01 11:53] LABS: BACTERIA,URINE Few /HPF (None Seen); MUCUS,URINE Moderate LPF (None Seen); RBC,URINE 0-1 /HPF (0-1); SQUAMOUS EPITHELIAL CELL,UR Few /HPF (0-2)
[2019-09-01] MEDS: SODIUM CHLORIDE 0.9% 1000ML 1,000 ML IV SCH (13:00)
[2019-09-01] MEDS ORDERED: MORPHINE SULFATE 2 MG/ML 1ML SYG IVP PRN (13:00)
[2019-09-01] MEDS ORDERED: ONDANSETRON HCL 4 MG/2 ML VIAL IVP PRN (13:00)
[2019-09-01] MEDS: ZOSYN 3.375GM+NS 50ML 50 ML IV SCH ×2 (14:00→21:17)
[2019-09-01] MEDS ORDERED: FAMOTIDINE/PF 20 MG/2 ML VIAL IV ONE (14:02)
[2019-09-01] MEDS ORDERED: DEXTROSE 50%-WATER 50 ML DISP.SYRIN IV PRN (14:30)
[2019-09-01] MEDS ORDERED: GLUCAGON 1MG KIT 1 MG ML IM PRN (14:30)
[2019-09-01] MEDS: INSULIN HUMULIN R 100 UNIT/ML 3ML SQ SCH ×2 (16:30→21:00)
--- NOTE | 2019-09-01 16:42 | NUR ---
DR FUNG MADE AWARE OF CINSULT. PAPERWORK FAXED TO OFFICE. PENDING TO BE SEEN
[2019-09-01 16:53] VITALS: BP 135/61
[2019-09-01] MEDS ORDERED: IOHEXOL 350 MG/ML 100ML INFUS..BTL IV ONE (17:43)
[2019-09-01] MEDS ORDERED: MULT-1192 PO (19:05)
[2019-09-01] MEDS ORDERED: KRIL1CAP12 PO (19:05)
[2019-09-01] MEDS ORDERED: MONT10TA26 PO (19:05)
[2019-09-01 20:09] VITALS: BP 118/64
[2019-09-01 23:40] VITALS: BP 124/65
[2019-09-02] VITALS (19 sets, daily range): BP systolic 101–123; BP diastolic 52–67
[2019-09-02] MEDS ORDERED: HYDROXYZINE HCL 25 MG TABLET PO SCH (01:30)
[2019-09-02] MEDS ORDERED: HYDROXYZINE HCL 25 MG TABLET ONE (01:32)
[2019-09-02] MEDS: HYDROXYZINE HCL 10 MG TABLET PO SCH (01:47)
[2019-09-02 03:51] LABS: BASOPHILS % (AUTO) 0.5 % (0.0-5.0); EOSINOPHILS % (AUTO) 1.5 % (0.0-8.0); HEMATOCRIT 34.6 % (42-54); LYMPHOCYTES % (AUTO) 15.6 % (21.0-51.0); MEAN CORPUSCULAR HEMOGLOBIN 30.9 pg (27.0-33.0); MEAN CORPUSCULAR HGB CONC 33.5 g/dL (32.0-36.0); NEUTROPHILS % (AUTO) 74.1 % (40.0-77.0); PLATELET COUNT (AUTO) 187 K/uL (130-400); RED BLOOD CELL COUNT(AUTO) 3.76 MIL/uL (4.50-6.20); RED CELL DISTRIBUTION WIDTH 15.2 % (11.0-15.5)
[2019-09-02 04:05] LABS: INR 1.18 (0.85-1.15); PROTHROMBIN TIME 12.7 SEC (9.6-11.6)
[2019-09-02 04:18] LABS: ALBUMIN 2.6 g/dL (3.5-5.0); BILIRUBIN,DIRECT 6.6 mg/dL (0.0-0.3); BILIRUBIN,TOTAL 8.1 mg/dL (0.2-1.0); CREATININE 0.9 mg/dL (0.5-1.5); POTASSIUM 3.9 mmol/L (3.5-5.1); TOTAL PROTEIN, SERUM 6.9 g/dL (6.0-8.3)
[2019-09-02] MEDS: SODIUM CHLORIDE 0.9% 1000ML 1,000 ML IV SCH ×2 (05:14→22:01)
[2019-09-02] MEDS: ZOSYN 3.375GM+NS 50ML 50 ML IV SCH ×3 (05:14→22:00)
[2019-09-02] MEDS: INSULIN HUMULIN R 100 UNIT/ML 3ML SQ SCH ×4 (06:09→21:00)
[2019-09-02] MEDS ORDERED: ENOXAPARIN SODIUM 30 MG/0.3 ML SQ SCH (09:00)
[2019-09-02] MEDS ORDERED: FAMOTIDINE/PF 20 MG/2 ML VIAL IV SCH (09:00)
--- NOTE | 2019-09-02 11:41 | NUR ---
DCP CM met with pt discussed dc plans. Pt is independent prior to admission, lives at home with spouse. Denies any equipments/services. Feels safe to go back home, still drives, spouse able to assist with transportation and needs as necessary. DC plan to home once stable. CM to cont to follow up. Addendum: 09/02/19 at 1142 by RIGOBERTO DEVI LVN CM Amended: Links added.
[2019-09-02] MEDS ORDERED: LIDOCAINE HCL-MPF 2% 5ML VIAL ONE (12:39)
[2019-09-02] MEDS ORDERED: PROPOFOL 10 MG/ML 20ML VIAL IV ONE (12:39)
--- NOTE | 2019-09-02 16:10 | NUR ---
RE: CT GUIDED BIOPSY OF LIVER MASS DR. WILHELM REVIEWED IMAGES AND ORDERED FOR PROCEDURE TO BE DONE BY US GUIDANCE IN THE AM AND TO KEEP PATIENT NPO AFTER MIDNIGHT. CALLED AND INFORMED NURSING STAFF, SIMÓN HINES OF ORDERS.
[2019-09-02 16:19] LABS: INR 1.31 (0.85-1.15)
[2019-09-02] MEDS ORDERED: MAGNESIUM CITRATE 296 ML SOLUTION PO SCH (17:15)
[2019-09-02] MEDS: LACTULOSE 20 GM/30 ML UDCUP PO SCH ×2 (17:26→17:29)
[2019-09-02] MEDS ORDERED: PEG 3350/NA SULF,BICARB,CL/KCL 4000 ML SOLN PO SCH (17:30)
[2019-09-02] MEDS: SYMBICORT 160-4.5 MCG INHALER IH SCH (21:00)
--- NOTE | 2019-09-02 21:05 | NUR ---
ENEMA TAP WATER ENEMA GIVEN , TOLERATED WELL, RETURN WATERY YELLOW STOOL, NO PARTICLES SEEN
[2019-09-03] VITALS (13 sets, daily range): BP systolic 101–168; BP diastolic 54–107
[2019-09-03] MEDS: HYDROXYZINE HCL 10 MG TABLET PO SCH (02:00)
[2019-09-03] MEDS: SODIUM CHLORIDE 0.9% 1000ML 1,000 ML IV SCH ×2 (02:02→20:57)
[2019-09-03 03:54] LABS: % IRON SATURATION 36.7 % (30-44)
[2019-09-03] MEDS: ZOSYN 3.375GM+NS 50ML 50 ML IV SCH ×3 (04:59→20:55)
[2019-09-03 06:18] LABS: BASOPHILS % (AUTO) 0.3 % (0.0-5.0); EOSINOPHILS % (AUTO) 1.2 % (0.0-8.0); HEMATOCRIT 35.6 % (42-54); LYMPHOCYTES % (AUTO) 15.9 % (21.0-51.0); MEAN CORPUSCULAR HEMOGLOBIN 30.4 pg (27.0-33.0); MEAN CORPUSCULAR HGB CONC 32.6 g/dL (32.0-36.0); MEAN CORPUSCULAR VOLUME 93.4 fL (79-99); NEUTROPHILS % (AUTO) 75.3 % (40.0-77.0); PLATELET COUNT (AUTO) 222 K/uL (130-400); RED BLOOD CELL COUNT(AUTO) 3.81 MIL/uL (4.50-6.20); RED CELL DISTRIBUTION WIDTH 15.3 % (11.0-15.5)
[2019-09-03] MEDS: INSULIN HUMULIN R 100 UNIT/ML 3ML SQ SCH ×4 (06:20→20:54)
[2019-09-03 06:22] LABS: ALBUMIN 2.6 g/dL (3.5-5.0); CREATININE 1.4 mg/dL (0.5-1.5); POTASSIUM 4.6 mmol/L (3.5-5.1); TOTAL PROTEIN, SERUM 6.9 g/dL (6.0-8.3)
[2019-09-03] MEDS: KRILL PO SCH (09:00)
[2019-09-03] MEDS: PANTOPRAZOLE SODIUM 40 MG TABLET.DR PO SCH (09:00)
[2019-09-03] MEDS: MULTIVITAMIN TABLET PO SCH (09:00)
[2019-09-03] MEDS: DHA PO SCH (09:00)
[2019-09-03] MEDS: OMEGA PO SCH (09:00)
[2019-09-03] MEDS: SYMBICORT 160-4.5 MCG INHALER IH SCH ×2 (09:00→20:54)
[2019-09-03] MEDS: EPA PO SCH (09:00)
[2019-09-03] MEDS: MONTELUKAST SODIUM 10 MG TAB PO SCH (09:00)
[2019-09-03] MEDS: Cholecalciferol (Vitamin D3) (Vitamin D3) 1,000 UNIT PO SCH (09:00)
[2019-09-03] MEDS: LIPIDS PO SCH (09:00)
[2019-09-03] MEDS ORDERED: FENTANYL CITRATE PF 50 MCG/1 ML 2ML VIAL ONE (09:33)
--- NOTE | 2019-09-03 09:55 | NUR ---
U/S GD LIVER BX PROCEDURE PERFORMED BY DR Gutierrez BEAVERS. PUNCTURE SITE RUQ AND PATIENT TOLERATED PROCEDURE WELL. SPECIMEN X 4 COLLECTED AND SENT TO LAB. END OF PROCEDURE AT 0945. BIOPSY NEEDLE REMOVED AND DRESSING APPLIED. NO BLEEDING NOTED. REPORT GIVEN TO Darell MONAE RN AND PATIENT TRANSPORTED TO [facility] [facility] BED AT 1000. AAO X3 WITH NO C/O PAIN.
--- NOTE | 2019-09-03 10:00 | NUR ---
PT RETURNED BACK TO UNIT FROM LIVER BIOPSY. PT AAO X3. VITAL SIGNS STABLE. DRESSING CLEAN AND INTACT TO RUQ. DENIES ANY PAIN AT THIS MOMENT. WILL CONTINUE TO MONITOR.
[2019-09-03] MEDS ORDERED: PROPOFOL 10 MG/ML 20ML VIAL IV ONE (14:04)
[2019-09-03] MEDS ORDERED: LIDOCAINE HCL 1% 20 ML VIAL ONE (14:05)
[2019-09-03] MEDS ORDERED: EPHEDRINE SULFATE 50 MG/ML AMPULE ONE (14:15)
--- NOTE | 2019-09-03 14:40 | NUR ---
PT RETURNS BACK TO UNIT FROM COLONOSCOPY. AAO X3. VITAL SIGNS ARE STABLE. DENIES PAIN. WILL CONTINUE TO MONITOR.
[2019-09-04] VITALS: BP 123/66
[2019-09-04 03:36] VITALS: BP 114/58
[2019-09-04] MEDS: INSULIN HUMULIN R 100 UNIT/ML 3ML SQ SCH (05:48)
[2019-09-04] MEDS: ZOSYN 3.375GM+NS 50ML 50 ML IV SCH (06:24)
[2019-09-04 06:26] LABS: BASOPHILS % (AUTO) 0.3 % (0.0-5.0); EOSINOPHILS % (AUTO) 1.4 % (0.0-8.0); HEMATOCRIT 35.6 % (42-54); MEAN CORPUSCULAR HEMOGLOBIN 31.1 pg (27.0-33.0); MEAN CORPUSCULAR HGB CONC 33.4 g/dL (32.0-36.0); MONOCYTES % (AUTO) 7.1 % (3.0-13.0); NEUTROPHILS % (AUTO) 72.9 % (40.0-77.0); PLATELET COUNT (AUTO) 235 K/uL (130-400); RED BLOOD CELL COUNT(AUTO) 3.83 MIL/uL (4.50-6.20); RED CELL DISTRIBUTION WIDTH 15.5 % (11.0-15.5); WHITE BLOOD COUNT (AUTO) 5.8 K/uL (4.8-10.8)
[2019-09-04 06:50] LABS: ALBUMIN 2.6 g/dL (3.5-5.0); BILIRUBIN,TOTAL 10.9 mg/dL (0.2-1.0); CREATININE 1.1 mg/dL (0.5-1.5); POTASSIUM 3.9 mmol/L (3.5-5.1); TOTAL PROTEIN, SERUM 7.1 g/dL (6.0-8.3)
[2019-09-04 08:00] VITALS: BP 108/58
[2019-09-04] MEDS: PANTOPRAZOLE SODIUM 40 MG TABLET.DR PO SCH (08:35)
[2019-09-04] MEDS: MULTIVITAMIN TABLET PO SCH (08:35)
[2019-09-04] MEDS: MONTELUKAST SODIUM 10 MG TAB PO SCH (08:36)
[2019-09-04] MEDS: LIPIDS PO SCH (08:37)
[2019-09-04] MEDS: OMEGA PO SCH (08:37)
[2019-09-04] MEDS: KRILL PO SCH (08:37)
[2019-09-04] MEDS: EPA PO SCH (08:37)
[2019-09-04] MEDS: DHA PO SCH (08:37)
[2019-09-04] MEDS: Cholecalciferol (Vitamin D3) (Vitamin D3) 1,000 UNIT PO SCH (08:37)
[2019-09-04] MEDS: SYMBICORT 160-4.5 MCG INHALER IH SCH (08:37)
== END 2019-09-04 13:00 | disposition home or self-care (01) | DRG 436 ==
LOC: EDH 09:45 → EDHIP 12:42 → 3AH 15:34
PROVIDERS: ADMIT Internal Medicine; ATTEND Internal Medicine
PROC: 0DJ08ZZ Inspection of Upper Intestinal Tract, Via Natural or Artificial Opening Endoscopic (ICD-10-PCS; 2019-09-02)
PROC: 0FB13ZX Excision of Right Lobe Liver, Percutaneous Approach, Diagnostic (ICD-10-PCS; principal; 2019-09-03)
PROC: 0DJD8ZZ Inspection of Lower Intestinal Tract, Via Natural or Artificial Opening Endoscopic (ICD-10-PCS; 2019-09-03)
DX: C22.8 Malignant neoplasm of liver, primary, unspecified as to type (principal); E44.1 Mild protein-calorie malnutrition; E87.1 Hypo-osmolality and hyponatremia; N13.2 Hydronephrosis with renal and ureteral calculous obstruction; K57.90 Diverticulosis of intestine, part unspecified, without perforation or abscess without bleeding; K75.9 Inflammatory liver disease, unspecified; N40.0 Benign prostatic hyperplasia without lower urinary tract symptoms; D64.9 Anemia, unspecified; E11.9 Type 2 diabetes mellitus without complications; E78.5 Hyperlipidemia, unspecified; E89.0 Postprocedural hypothyroidism; I10 Essential (primary) hypertension; I25.10 Atherosclerotic heart disease of native coronary artery without angina pectoris; J44.9 Chronic obstructive pulmonary disease, unspecified; K27.9 Peptic ulcer, site unspecified, unspecified as acute or chronic, without hemorrhage or perforation; R16.1 Splenomegaly, not elsewhere classified; E80.6 Other disorders of bilirubin metabolism; K21.0 Gastro-esophageal reflux disease with esophagitis; K29.00 Acute gastritis without bleeding; D50.9 Iron deficiency anemia, unspecified; K64.0 First degree hemorrhoids; K57.30 Diverticulosis of large intestine without perforation or abscess without bleeding; Z20.828 Contact with and (suspected) exposure to other viral communicable diseases; R93.3 Abnormal findings on diagnostic imaging of other parts of digestive tract; Z68.23 Body mass index [BMI] 23.0-23.9, adult; Z88.8 Allergy status to other drugs, medicaments and biological substances; Z87.730 Personal history of (corrected) cleft lip and palate; Z87.442 Personal history of urinary calculi; Z82.3 Family history of stroke; Z82.5 Family history of asthma and other chronic lower respiratory diseases; Z82.49 Family history of ischemic heart disease and other diseases of the circulatory system
CPT/HCPCS: 36415; 43235; 45378; 47000; 71045; 74176; 74178; 76705; 76942; 80048; 80053; 80076; 81001; 82105; 82378; 82550; 82948; 83540; 83550; 83605; 83874; 84145; 84484; 85025; 85610; 85651; 85730; 86140; 86316; 87040; 87088; 88307; 88341; 88342; 88360; 93005; A4606; G0378; J1650; J2543; J2704; J3010; J3490; J7030; Q9967